=== PATIENT | male | born 1975 | race Caucasian/White ===

== ENCOUNTER 2021-08-11 09:31 | Emergency (ER) | payer OTHER ==
[2021-08-11] MEDS ORDERED: PREDNISONE50 MG PO (11:03)
== END 2021-08-11 11:29 | disposition home or self-care (01) ==
LOC: ED 09:31
DX: M54.42 Lumbago with sciatica, left side (principal)

== ENCOUNTER → 2021-08-21 | Outpatient (CLI) | payer OTHER ==
[~2021-08-21] MED LIST: PREDNISONE50 MG PO
== END | disposition home or self-care (01) ==
LOC: RAD 15:40
PROVIDERS: ATTEND Nurse Practitioner
DX: M54.50 Low back pain, unspecified (principal)

== ENCOUNTER 2021-09-14 11:37 | Emergency (ER) | payer OTHER ==
[~2021-09-14] VITALS: Wt 113.4 kg
[2021-09-14] MEDS ORDERED: METHOCARBAMOL500 M1 PO (16:17)
== END 2021-09-14 16:20 | disposition home or self-care (01) ==
LOC: ED 11:37
DX: S06.0X0A Concussion without loss of consciousness, initial encounter (principal); V89.2XXA Person injured in unspecified motor-vehicle accident, traffic, initial encounter; Y93.89 Activity, other specified; Y92.89 Other specified places as the place of occurrence of the external cause; Y99.8 Other external cause status

== ENCOUNTER 2022-02-10 06:06 | Emergency (ER) | payer OTHER ==
[~2022-02-10 06:06] MED LIST changes: +METHOCARBAMOL500 M1 PO
[2022-02-10] MEDS ORDERED: CLINDAMYCIN HC300 MG PO (06:30)
[2022-02-10] MEDS ORDERED: LEVOFLOXACIN750 M2 PO (06:30)
[2022-02-10 08:50] LABS: BASO # 0.1 10*3/uL (0.0-0.1); BASO % 0.5 % (0.0-1.0); EOS # 0.2 10*3/uL (0.0-0.4); EOS % 1.5 % (1.0-4.0); HEMATOCRIT 50.6 % (42.0-52.0); LYMPH # 2.3 10*3/uL (1.3-4.4); LYMPH % 20.1 % (27.0-41.0); MEAN CELL VOLUME 80.6 fl (80.0-94.0); MEAN CORPUSCULAR HGB 26.9 pg (27.0-31.0); MEAN CORPUSCULAR HGB CONC 33.4 g/dl (33.0-37.0); MEAN PLATELET VOLUME 9.4 fl (9.6-12.3); MONO % 8.4 % (3.0-9.0); NEUT # 7.8 10*3/uL (2.3-7.9); NEUT % 69.1 % (47.0-73.0); PLATELET COUNT AUTOMATED 284 10*3/uL (130-400); RED BLOOD COUNT 6.28 10*6/uL (4.50-5.90); RED CELL DISTRI WIDTH 13.7 % (0-14.5); WHITE BLOOD COUNT 11.3 10*3/uL (4.8-10.8)
[2022-02-10 09:04] LABS: ALKALINE PHOSPHATASE 122 U/L (45-117); BUN 15 mg/dl (7-24); CHLORIDE 103 mmol/L (98-107); CREATININE 0.94 mg/dL (0.70-1.30); POTASSIUM 3.5 mmol/L (3.5-5.1); SGOT/AST 29 IU/L (3-35); SGPT/ALT 52 U/L (12-78); SODIUM 136 mmol/L (136-145)
[2022-02-10 09:05] LABS: ACT PARTIAL THROMBO TIME 29.3 SECONDS (20.0-32.1)
[2022-02-10] MEDS ORDERED: CIPRO500 MG PO (09:20)
[2022-02-10] MEDS ORDERED: CLEOCIN HCL150 MG PO (09:20)
== END 2022-02-10 09:35 | disposition home or self-care (01) ==
LOC: ED 06:06
PROVIDERS: Emergency Medicine
DX: S91.331A Puncture wound without foreign body, right foot, initial encounter (principal); L08.9 Local infection of the skin and subcutaneous tissue, unspecified; X58.XXXA Exposure to other specified factors, initial encounter; Y93.89 Activity, other specified; Y92.89 Other specified places as the place of occurrence of the external cause; Y99.8 Other external cause status

== ENCOUNTER 2022-04-14 10:49 | Emergency (ER) | payer OTHER ==
[~2022-04-14] VITALS: Wt 140.6 kg
[~2022-04-14 10:49] MED LIST changes: +CIPRO500 MG PO; +CLEOCIN HCL150 MG PO; +CLINDAMYCIN HC300 MG PO; +LEVOFLOXACIN750 M2 PO
[2022-04-14] MEDS ORDERED: MEDROL DOSEPAK4 MG PO (12:27)
== END 2022-04-14 12:33 | disposition home or self-care (01) ==
LOC: ED 10:49
DX: M54.16 Radiculopathy, lumbar region (principal); Z90.49 Acquired absence of other specified parts of digestive tract

== ENCOUNTER 2024-02-14 22:14 | Emergency (ER) | payer OTHER ==
[~2024-02-14] VITALS: Ht 187.9 cm; Wt 142.9 kg
[~2024-02-14 22:14] MED LIST changes: +MEDROL DOSEPAK4 MG PO
== END 2024-02-14 23:45 | disposition left against medical advice (07) ==
LOC: ED 22:14
DX: M54.9 Dorsalgia, unspecified (principal); Z53.21 Procedure and treatment not carried out due to patient leaving prior to being seen by health care provider